=== PATIENT | female | born 1975 | race Caucasian/White ===

== ENCOUNTER 2020-12-31 17:37 | Emergency (ER) | payer BC, OTHER ==
[2020-12-31] MEDS ORDERED: Ondansetron 4 MG Tab.DIS PO ONE (18:09)
--- NOTE | 2020-12-31 18:10 | EDM.PDOC ---
ED HPI GENERAL MEDICAL PROBLEM - General Chief Complaint: Gastrointestinal Problem Stated Complaint: COVID POSS. - SYMPTOMS Time Seen by Provider: 12/31/20 18:10 Source of Information: Reports: Patient, RN Notes Reviewed History Limitations: Reports: No Limitations - History of Present Illness INITIAL COMMENTS - FREE TEXT/NARRATIVE: Cassidy presents today for complaints of nausea, decreased appetite, sinus headache and generalized weakness that has worsened since she had COVID. She has tried to drink water and gatorade without any improvement. She reports emesis this am with diarrhea. She denies fever, chills, difficulty with urination, wounds, SOB, difficulty breathing or chest pain. She denies any other issues or concerns. 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 Denies: Fever, Chills, Night Sweats, Diaphoresis, Weight Loss, Weight Gain HEENT: Reports: Other (headache off and on). Denies: Dental Pain, Ear Discharge, Ear Pain, Eye Discharge, Eye Pain, Nose Pain, Rhinitis, Throat Pain, Throat Swelling Respiratory: Reports: No Symptoms Cardiovascular: Reports: No Symptoms Endocrine: Reports: No Symptoms GI/Abdominal: Reports: Diarrhea, Nausea, Vomiting. Denies: Abdominal Pain, Anorexia, Black Stool, Bloody Stool, Constipation, Decreased Appetite, Difficulty Swallowing, Distension, Flatus, Hematemesis, Hematochezia, Melena, Mucous in Stool, Stool Incontinence : Reports: No Symptoms Musculoskeletal: Reports: No Symptoms Skin: Reports: No Symptoms Neurological: Reports: No Symptoms Psychiatric: Reports: No Symptoms Hematologic/Lymphatic: Reports: No Symptoms Immunologic: Reports: No Symptoms ED EXAM, GI/ABD - Physical Exam Exam: See Below Exam Limited By: No Limitations General Appearance: Alert, WD/WN, No Apparent Distress Eyes: Bilateral: Normal Appearance Ears: Normal External Exam, Normal Canal, Hearing Grossly Normal, Normal TMs Nose: Normal Inspection, Normal Mucosa, No Blood Throat/Mouth: Normal Inspection, Normal Lips, Normal Teeth, Normal Gums, Normal Oropharynx, Normal Voice, No Airway Compromise Head: Atraumatic, Normocephalic. No: Facial Swelling, Facial Tenderness, Sinus Tenderness Neck: Normal Inspection, Supple, Non-Tender, Full Range of Motion. No: Lymphadenopathy (R), Lymphadenopathy (L) Respiratory/Chest: No Respiratory Distress, Lungs Clear, Normal Breath Sounds, No Accessory Muscle Use, Chest Non-Tender. No: Crackles, Rales, Rhonchi, Wheezing, Stridor, Accessory Muscle Use, Retractions, Splinting Cardiovascular: Normal Peripheral Pulses, Regular Rate, Rhythm, No Edema, No Gallop, No Murmur, No Rub GI/Abdominal Exam: Normal Bowel Sounds, Soft, Non-Tender, No Organomegaly, No Distention, No Abnormal Bruit, No Mass. No: Distended, Guarding, Rigid, Rebound , Tender (Female) Exam: Deferred Rectal (Female) Exam: Deferred Back Exam: Normal Inspection, Full Range of Motion. No: CVA Tenderness (R), CVA Tenderness (L) Extremities: Normal Inspection, Normal Range of Motion, Non-Tender, No Pedal Edema, Normal Capillary Refill Neurological: Alert, Oriented, CN II-XII Intact, Normal Cognition, Normal Gait, Normal Reflexes, No Motor/Sensory Deficits Psychiatric: Normal Affect, Normal Mood Skin Exam: Warm, Dry, Intact, Normal Color, No Rash Lymphatic: No Adenopathy Course - Vital Signs Last Recorded V/S: Last Vital Signs Temp 36.0 C L 12/31/20 20:30 Pulse 80 12/31/20 20:30 Resp 14 12/31/20 20:30 BP 103/82 12/31/20 20:30 Pulse Ox 97 12/31/20 20:30 - Orders/Labs/Meds Labs: Laboratory Tests 12/31/20 12/31/20 Range/Units 18:35 18:35 WBC 4.4 L (4.5-11.0) K/uL RBC 4.36 (3.30-5.50) M/uL Hgb 13.4 (12.0-15.0) g/dL Hct 39.2 (36.0-48.0) % MCV 90 (80-98) fL MCH 31 (27-31) pg MCHC 34 (32-36) % Plt Count 203 (150-400) K/uL Neut % (Auto) 55.0 (36-66) % Lymph % (Auto) 32.0 (24-44) % [place]oul[place] % (Auto) 13.0 H (2-6) % Eos % (Auto) 0.0 L (2-4) % Baso % (Auto) 0.0 (0-1) % Sodium 140 (140-148) mmol/L Potassium 3.6 (3.6-5.2) mmol/L Chloride 102 (100-108) mmol/L Carbon Dioxide 23 (21-32) mmol/L Anion Gap 14.8 H (5.0-14.0) mmol/L BUN 12 (7-18) mg/dL Creatinine 0.8 (0.6-1.0) mg/dL Est Cr Clr Drug Dosing 77.49 mL/min Estimated GFR (MDRD) > 60 (>60) Glucose 81 (74-106) mg/dL Calcium 8.3 L (8.5-10.1) mg/dL Magnesium 1.7 L (1.8-2.4) mg/dL Total Bilirubin 0.3 (0.2-1.0) mg/dL AST 42 H (15-37) U/L ALT 57 (12-78) U/L Alkaline Phosphatase 61 (46-116) U/L Total Protein 6.7 (6.4-8.2) g/dL Albumin 3.0 L (3.4-5.0) g/dL Globulin 3.7 H (2.3-3.5) g/dL Albumin/Globulin Ratio 0.8 L (1.2-2.2) Patient lab work reviewed, no acute findings noted. Slightly low magnesium and calcium. Meds: Medications Discontinued Medications Generic Name Dose Route Start Last Admin Trade Name Freq PRN Reason Stop Dose Admin Ketorolac Tromethamine 30 mg 12/31/20 20:13 12/31/20 20:24 Ketorolac 30 Mg/Ml Sdv IM 12/31/20 20:14 30 mg ONETIME ONE Administration Ondansetron HCl 4 mg 12/31/20 18:09 10/30/21 18:12 Ondansetron 4 Mg Tab.Dis PO 12/31/20 18:10 4 mg ONETIME ONE Administration Ondansetron administered, we will wait 30 minutes and provide oral fluids while lab work pending. Departure - Departure Time of Disposition: 20:13 Disposition: Home, Self-Care 01 Condition: Good Clinical Impression: Nausea & vomiting, COVID-19 - Discharge Information *PRESCRIPTION DRUG MONITORING PROGRAM REVIEWED*: Not Applicable *COPY OF PRESCRIPTION DRUG MONITORING REPORT IN PATIENT TRESSA: Not Applicable Instructions: Nausea and Vomiting, Adult Referrals: Darinel Benito MD [Primary Care Provider] - Forms: ED Department Discharge Additional Instructions: You have been evaluated and treated for nausea and vomiting secondary to COVID- 19. Take ondansetron 4mg by mouth every 8 hours as needed for nausea. Wait 30 minutes after taking and start sipping fluids and eating a bland diet. Bananas, rice apple sauce and toast work well. Gatorade works well. Drink plenty of water. After COVID some people experience a drop in their appetite. Slowly work on building it up to normal over the next 7 to 10 days. Work in intake of protein to help your body heal and gain strength (eggs, meat, peanut butter). Follow up with primary in 7 to 14 days for recheck. Return for any worsening, issues or concerns. Sepsis Event Note (ED) - Evaluation Sepsis Screening Result: No Definite Risk - Focused Exam Vital Signs: Vital Signs Temp Pulse Resp BP Pulse Ox 12/31/20 20:30 36.0 C L 80 14 103/82 97 12/31/20 18:02 36.6 C 79 16 116/80 98 12/31/20 17:57 36.6 C 79 16 116/80 98 - Assessment/Plan Assessment:: Nausea & vomiting, COVID-19 Plan: Patient evaluated and treated for nausea and vomiting secondary to COVID-19. Take ondansetron 4mg by mouth every 8 hours as needed for nausea. Wait 30 minutes after taking and start sipping fluids and eating a bland diet. Bananas, rice apple sauce and toast work well. Gatorade works well. Drink plenty of water. After COVID some people experience a drop in their appetite. Slowly work on building it up to normal over the next 7 to 10 days. Work in intake of protein to help your body heal and gain strength (eggs, meat, peanut butter). Follow up with primary in 7 to 14 days for recheck. Return for any worsening, issues or concerns.
[2020-12-31] MEDS ORDERED: Ketorolac 30 MG/ML SDV IM ONE (20:13)
== END 2020-12-31 20:35 | disposition home or self-care (01) ==
LOC: JP.ED 17:37
DX: U07.1 COVID-19 (principal); R11.2 Nausea with vomiting, unspecified; Z88.0 Allergy status to penicillin
CPT/HCPCS: 36415; 80053; 83735; 85025; 96372; 99284; A9270; J1885

== ENCOUNTER 2021-05-15 07:46 | Day surgery (SDC) | payer BC ==
[~2021-05-15 07:46] MED LIST: Dexamethasone 4 MG/ML SDV ONE; Glycopyrrolate 0.2 MG/ML 5 ML MDV ONE; Neostigmine Methylsulfate 1 MG/ML 5 ML Syringe ONE; Ondansetron 4 MG/2 ML SDV ONE; Propofol 200 MG/20 ML SDV ONE; Rocuronium 50 MG/5 ML Vial ONE; fentaNYL 250 MCG/5 ML SDV ONE
[2021-05-15] MEDS ORDERED: Acetaminophen 500 MG Tab PO ONE (08:00)
[2021-05-15] MEDS ORDERED: Dextrose 5%-Lactated Ringers 1,000 ML IV SCH (08:30)
[2021-05-15] MEDS ORDERED: Meropenem 500 MG in Sodium Chloride 0.9% 50 ML IV ONE (09:00)
[2021-05-15] MEDS ORDERED: Meropenem 500 MG SDV ONE (09:04)
[2021-05-15] MEDS ORDERED: Lidocaine 1% with EPINEPHrine 1:100,000 50 ML MDV ONE (09:04)
[2021-05-15] MEDS ORDERED: Bupivacaine 0.5% 50 ML MDV ONE (09:04)
[2021-05-15] MEDS ORDERED: Ketorolac 30 MG/ML SDV ONE ×2 (10:30→10:31)
== END 2021-05-15 12:40 | disposition home or self-care (01) ==
LOC: JP.SDS 07:46
PROVIDERS: ATTEND Surgery
DX: L05.01 Pilonidal cyst with abscess (principal); B97.7 Papillomavirus as the cause of diseases classified elsewhere; Z88.0 Allergy status to penicillin
CPT/HCPCS: 36415; 80053; 85027; 88304; A9270-GY; J1100; J1885; J2185; J2405; J2704; J2710; J3010; J3490; J7121